=== PATIENT | male | born 1990 | race Caucasian/White ===

== ENCOUNTER 2017-08-25 19:28 | Emergency (ER) | payer SELFPAY ==
[~2017-08-25] VITALS: Ht 185.4 cm; Wt 106.6 kg
[2017-08-25] MEDS ORDERED: HYDROcodone-ACET 10/325MG TAB PO ONE (19:45)
[2017-08-25 19:46] VITALS: BP 136/85
[2017-08-25] MEDS ORDERED: HYDROmorphone HCL 2 MG/ML VL IV ONE (20:15)
[2017-08-25] MEDS ORDERED: ONDANSETRON HCL 4 MG/2 ML VIAL IV ONE (20:15)
[2017-08-25] MEDS ORDERED: cefTRIAXone W LIDOCAINE 1 GM IM IM ONE (21:00)
[2017-08-25] MEDS ORDERED: TETANUS-DIPTH-ACEL PERTUSSIS 0.5ML SYRG IM ONE (21:00)
[2017-08-25] MEDS ORDERED: cefTRIAXone SOD 1,000 MG VL ONE (21:12)
== END 2017-08-25 21:32 | disposition home or self-care (01) ==
LOC: ER 19:28
DX: T22.211A Burn of second degree of right forearm, initial encounter (principal); T22.111A Burn of first degree of right forearm, initial encounter; F17.210 Nicotine dependence, cigarettes, uncomplicated; F12.10 Cannabis abuse, uncomplicated; X19.XXXA Contact with other heat and hot substances, initial encounter; Y93.89 Activity, other specified; Y99.8 Other external cause status; Y92.89 Other specified places as the place of occurrence of the external cause
CPT/HCPCS: 90471; 90715; 96372; 96374; 96375; 99284; J0696; J1170; J2405